=== PATIENT | female | born 1955 | race Caucasian/White ===

== ENCOUNTER 2023-01-14 21:20 | Emergency (ER) | payer OTHER ==
[~2023-01-14] VITALS: Ht 160 cm; Wt 64.9 kg
[2023-01-14 21:45] VITALS: BP 160/90; PULSE 64; RESP 16; TEMP 98.9; O2SAT 96
--- NOTE | 2023-01-14 21:48 | NUR ---
TO LOBBY A/W BED AMBULATORY
--- NOTE | 2023-01-15 00:04 | NUR ---
PT TO BED #3
--- NOTE | 2023-01-15 00:05 | NUR ---
Elvira hernandez in [facility] - 01/15/23 at 0005 by RUFINO PT TAKEN TO BED 3
--- NOTE | 2023-01-15 00:25 | NUR ---
DR. MARKS EVALUATING THE PT.
[2023-01-15 00:37] VITALS: BP 130/84; PULSE 60; RESP 16; TEMP 98.9; O2SAT 97
--- NOTE | 2023-01-15 00:37 | NUR ---
Patient discharged with v/s stable. Written and verbal after care instructions given and explained. Patient verbalized understanding. Ambulatory with steady gait. All questions addressed prior to discharge. Advised to follow up with PMD.
== END 2023-01-15 00:37 | disposition home or self-care (01) ==
LOC: MED 21:20
DX: K11.20 Sialoadenitis, unspecified (principal); Z88.5 Allergy status to narcotic agent; Z79.899 Other long term (current) drug therapy
CPT/HCPCS: 99282

== ENCOUNTER 2023-06-21 10:23 | Emergency (ER) | payer MEDICARE, OTHER ==
[~2023-06-21] VITALS: Ht 152.4 cm; Wt 66.2 kg
[2023-06-21 10:40] VITALS: BP 154/87; PULSE 69; RESP 16; TEMP 98; O2SAT 94
[2023-06-21] MEDS ORDERED: KETOROLAC 60 MG/2 ML VIAL IM ONE (12:10)
[2023-06-21] MEDS ORDERED: TRAM-748 PO (12:21)
[2023-06-21 12:36] VITALS: BP 154/87; PULSE 69; RESP 16; TEMP 98; O2SAT 94
== END 2023-06-21 12:36 | disposition home or self-care (01) ==
LOC: MED 10:23
DX: M79.602 Pain in left arm (principal); Z79.899 Other long term (current) drug therapy
CPT/HCPCS: 96372; 99283; J1885